=== PATIENT | female | born 1975 | race African-American/Black ===

== ENCOUNTER 2018-01-28 07:45 | Emergency (ER) | payer OTHER ==
[~2018-01-28] VITALS: Ht 152.4 cm; Wt 78.6 kg
[2018-01-28] MEDS ORDERED: FISH OIL1000 MG PO (08:01)
[2018-01-28] MEDS ORDERED: COD LIVER OI PO (08:02)
[2018-01-28 08:25] LABS: HEMATOCRIT 35.6 % (37.0-47.0); HEMOGLOBIN 11.7 g/dl (12.0-16.0); IMMATURE GRANULOCYTES 0.3 % (0.0-5.0); MEAN CORPUSCULAR HGB 27.9 pG CALC (26.0-32.0); MEAN CORPUSCULAR HGB CONC 32.9 g/L CALC (32.0-36.0); NEUT# 4.3 thou/uL (2.00-7.15); RED BLOOD COUNT 4.19 mill/uL (4.20-5.60)
[2018-01-28 08:37] LABS: INFLUENZA A NONE DETECTED (NONE DETECT); INFLUENZA B NONE DETECTED (NONE DETECT)
[2018-01-28 08:38] LABS: ANION GAP 12 (6-22 (CALC)); BUN 9 mg/dL (7-17); BUN/CREATININE RATIO 18 (12-20 (CALC)); CARBON DIOXIDE 25 mmol/l (22-30); CHLORIDE 107 mmol/l (95-108); CREATININE 0.5 mg/dL (0.5-1.0); GFR > 60 ML/MIN (>=60 (CALC)); GFR FOR AFR.AMER. > 60 ML/MIN (>=60 (CALC)); POTASSIUM 4.1 mmol/l (3.5-5.1); SODIUM 140 mmol/l (137-146)
[2018-01-28 09:13] LABS: URINE BILIRUBIN - DIPSTICK NEGATIVE (NEGATIVE); URINE BLOOD DIPSTICK LARGE (NEGATIVE); URINE COLOR YELLOW; URINE GLUCOSE - DIPSTICK NEGATIVE (NEGATIVE); URINE KETONE 15 mg/dL (NEGATIVE); URINE LEUK ESTERASE NEGATIVE (NEGATIVE); URINE NITRITE - DIPSTICK NEGATIVE (Negative); URINE PROTEIN - DIPSTICK NEGATIVE (NEG-TRACE); URINE SPECIFIC GRAVITY >=1.030; URINE UROBILINOGEN - DIPSTICK 0.2 E.U./dL (0.2)
[2018-01-28 09:14] LABS: URINE CLARITY CLEAR
[2018-01-28 09:22] LABS: URINE SQUAMOUS EPITHELIAL CELL FEW EPI/hpf (0-FEW); URINE WBC 0-2 WBC/hpf (0-5)
[2018-01-28] MEDS ORDERED: PULMICORT90 MCG/ACT PO (10:03)
[2018-01-28] MEDS ORDERED: AUGMENTIN875TAB PO (10:03)
[2018-01-28] MEDS ORDERED: ONDANSETRON4 MG PO (10:03)
[2018-01-28] MEDS ORDERED: PROAIR HFA108 MCG/AC PO (10:03)
[2018-01-28 10:29] VITALS: BP 109/67
== END 2018-01-28 10:25 | disposition home or self-care (01) ==
LOC: ED 07:45
PROVIDERS: Family Medicine
DX: J32.0 Chronic maxillary sinusitis (principal); J02.0 Streptococcal pharyngitis; R07.89 Other chest pain; J45.909 Unspecified asthma, uncomplicated; R11.2 Nausea with vomiting, unspecified; R05 Cough

== ENCOUNTER 2018-07-03 14:34 | Emergency (ER) | payer OTHER ==
[~2018-07-03] VITALS: Ht 152.4 cm; Wt 82.0 kg
[~2018-07-03 14:34] MED LIST: AUGMENTIN875TAB PO; COD LIVER OI PO; FISH OIL1000 MG PO; ONDANSETRON4 MG PO; PROAIR HFA108 MCG/AC PO; PULMICORT90 MCG/ACT PO
[2018-07-03 15:52] LABS: URINE BILIRUBIN - DIPSTICK NEGATIVE (NEGATIVE); URINE BLOOD DIPSTICK MODERATE (NEGATIVE); URINE COLOR YELLOW; URINE GLUCOSE - DIPSTICK NEGATIVE (NEGATIVE); URINE KETONE NEGATIVE (NEGATIVE); URINE NITRITE - DIPSTICK NEGATIVE (Negative); URINE PROTEIN - DIPSTICK NEGATIVE (NEG-TRACE); URINE UROBILINOGEN - DIPSTICK 0.2 E.U./dL (0.2)
[2018-07-03 15:57] LABS: URINE LEUK ESTERASE SMALL (NEGATIVE)
[2018-07-03 16:51] LABS: URINE RBC TNTC RBC/hpf (0-5)
[2018-07-03 16:52] LABS: URINE SQUAMOUS EPITHELIAL CELL FEW EPI/hpf (0-FEW)
[2018-07-03] MEDS ORDERED: KEFLEX500 M1 PO (16:53)
[2018-07-03] MEDS ORDERED: PYRIDIUM200 MG PO (16:53)
[2018-07-03 17:15] VITALS: BP 120/58
== END 2018-07-03 17:15 | disposition home or self-care (01) ==
LOC: ED 14:34
DX: N39.0 Urinary tract infection, site not specified (principal); R30.9 Painful micturition, unspecified

== ENCOUNTER 2018-07-19 21:02 | Emergency (ER) | payer OTHER ==
[~2018-07-19] VITALS: Ht 152.4 cm; Wt 83.0 kg
[~2018-07-19 21:02] MED LIST changes: +KEFLEX500 M1 PO; +PYRIDIUM200 MG PO
[2018-07-19 23:51] LABS: HEMATOCRIT 34.2 % (37.0-47.0); IMMATURE GRANULOCYTES 0.3 % (0.0-5.0); MEAN CORPUSCULAR HGB 26.4 pG CALC (26.0-32.0); MEAN CORPUSCULAR HGB CONC 32.2 g/L CALC (32.0-36.0); NEUT# 3.89 thou/uL (2.00-7.15); RED BLOOD COUNT 4.17 mill/uL (4.20-5.60); RED CELL DISTRI WIDTH 16.1 % (11.5-15.5)
[2018-07-19 23:52] LABS: URINE BILIRUBIN - DIPSTICK NEGATIVE (NEGATIVE); URINE BLOOD DIPSTICK LARGE (NEGATIVE); URINE COLOR YELLOW; URINE GLUCOSE - DIPSTICK NEGATIVE (NEGATIVE); URINE KETONE TRACE mg/dL (NEGATIVE); URINE LEUK ESTERASE NEGATIVE (NEGATIVE); URINE NITRITE - DIPSTICK NEGATIVE (Negative); URINE PH 5.5 (4.5-8.0); URINE PROTEIN - DIPSTICK NEGATIVE (NEG-TRACE); URINE SPECIFIC GRAVITY >=1.030; URINE UROBILINOGEN - DIPSTICK 0.2 E.U./dL (0.2)
[2018-07-19 23:53] LABS: HCG SERUM/URINE (NEG/POS) NEGATIVE (NEGATIVE)
[2018-07-20 00:02] LABS: ALBUMIN 4.2 g/dL (3.2-5.0); ALKALINE PHOSPHATASE 67 u/l (38-126); ANION GAP 13 (6-22 (CALC)); BILIRUBIN, TOTAL 0.2 mg/dL (0.0-1.4); BUN 11 mg/dL (7-17); BUN/CREATININE RATIO 22 (12-20 (CALC)); CARBON DIOXIDE 24 mmol/l (22-30); CHLORIDE 107 mmol/l (95-108); CREATININE 0.5 mg/dL (0.5-1.0); GFR > 60 ML/MIN (>=60 (CALC)); GFR FOR AFR.AMER. > 60 ML/MIN (>=60 (CALC)); POTASSIUM 4.1 mmol/l (3.5-5.1); SGOT/AST 22 u/l (14-36); SODIUM 139 mmol/l (137-146); TOTAL PROTEIN 7.2 g/dL (6.3-8.2)
[2018-07-20 00:06] LABS: URINE SQUAMOUS EPITHELIAL CELL MODERATE EPI/hpf (0-FEW); URINE WBC 0-2 WBC/hpf (0-5)
[2018-07-20 00:07] LABS: URINE BACTERIA MODERATE hpf
[2018-07-20 00:24] LABS: ACT PARTIAL THROMBO TIME 26.8 SECONDS (20.0-32.5)
[2018-07-20 03:07] VITALS: BP 110/70
== END 2018-07-20 03:07 | disposition home or self-care (01) ==
LOC: ED 21:02
PROVIDERS: Emergency Medicine
DX: B37.3 Candidiasis of vulva and vagina (principal); R31.9 Hematuria, unspecified; F17.210 Nicotine dependence, cigarettes, uncomplicated; R10.2 Pelvic and perineal pain; M54.5 Low back pain
CPT/HCPCS: Q9967

== ENCOUNTER 2019-04-14 | Emergency (ER) | payer SELFPAY ==
[2019-04-14 10:15] LABS: URINE BILIRUBIN - DIPSTICK NEGATIVE (NEGATIVE); URINE BLOOD DIPSTICK LARGE (NEGATIVE); URINE COLOR YELLOW; URINE GLUCOSE - DIPSTICK NEGATIVE (NEGATIVE); URINE KETONE NEGATIVE (NEGATIVE); URINE LEUK ESTERASE NEGATIVE (NEGATIVE); URINE NITRITE - DIPSTICK NEGATIVE (Negative); URINE PROTEIN - DIPSTICK NEGATIVE (NEG-TRACE); URINE UROBILINOGEN - DIPSTICK 0.2 E.U./dL (0.2)
[2019-04-14 10:34] LABS: URINE RBC 25-50 RBC/hpf (0-5); URINE SQUAMOUS EPITHELIAL CELL FEW EPI/hpf (0-FEW)
[2019-04-14] MEDS ORDERED: PYRIDIUM200 MG PO ×2 (10:39)
[2019-04-14] MEDS ORDERED: BACTRIM DS1 TAB PO (10:39)
[2019-04-14] MEDS ORDERED: DIFLUCAN150 MG PO ×2 (10:39)
== END 2019-04-14 10:52 | disposition home or self-care (01) | DRG 690 ==
DX: N39.0 Urinary tract infection, site not specified (principal); F17.210 Nicotine dependence, cigarettes, uncomplicated

== ENCOUNTER 2019-10-09 18:32 | Emergency (ER) | payer MEDICAID ==
[~2019-10-09] VITALS: Ht 144.8 cm; Wt 90.0 kg
[~2019-10-09 18:32] MED LIST changes: +BACTRIM DS1 TAB PO; +DIFLUCAN150 MG PO
[2019-10-09 19:32] LABS: HEMATOCRIT 33.3 % (37.0-47.0); HEMOGLOBIN 10.7 g/dl (12.0-16.0); IMMATURE GRANULOCYTES 0.3 % (0.0-5.0); MEAN CELL VOLUME 81.8 fL CALC (80.0-100.0); MEAN CORPUSCULAR HGB 26.3 pG CALC (26.0-32.0); MEAN CORPUSCULAR HGB CONC 32.1 g/dL CAL (32.0-36.0); NEUT# 3.39 thou/uL (2.00-7.15); RED BLOOD COUNT 4.07 mill/uL (4.20-5.60)
[2019-10-09 19:37] LABS: URINE BILIRUBIN - DIPSTICK NEGATIVE (NEGATIVE); URINE BLOOD DIPSTICK MODERATE (NEGATIVE); URINE COLOR YELLOW; URINE GLUCOSE - DIPSTICK NEGATIVE (NEGATIVE); URINE KETONE TRACE mg/dL (NEGATIVE); URINE LEUK ESTERASE NEGATIVE (NEGATIVE); URINE PROTEIN - DIPSTICK TRACE mg/dL (NEG-TRACE); URINE SPECIFIC GRAVITY 1.025
[2019-10-09 19:39] LABS: URINE NITRITE - DIPSTICK POSITIVE (Negative)
[2019-10-09 19:47] LABS: URINE SQUAMOUS EPITHELIAL CELL FEW EPI/hpf (0-FEW); URINE WBC 0-2 WBC/hpf (0-5)
[2019-10-09 19:49] LABS: ALBUMIN 4.2 g/dL (3.2-5.0); ALKALINE PHOSPHATASE 68 u/l (38-126); AMYLASE 78 u/l (30-110); ANION GAP 8 (6-22 (CALC)); BILIRUBIN, TOTAL 0.2 mg/dL (0.0-1.4); BUN 10 mg/dL (7-17); BUN/CREATININE RATIO 21 (12-20 (CALC)); CARBON DIOXIDE 23 mmol/l (22-30); CHLORIDE 108 mmol/l (95-108); CREATININE 0.5 mg/dL (0.5-1.0); GFR > 60 ML/MIN (>=60 (CALC)); GFR FOR AFR.AMER. > 60 ML/MIN (>=60 (CALC)); LIPASE 49 u/l (23-300); SGOT/AST 30 u/l (14-36); SODIUM 135 mmol/l (137-146); TOTAL PROTEIN 7.6 g/dL (6.3-8.2)
[2019-10-09 20:44] VITALS: BP 114/58
[2019-10-09] MEDS ORDERED: ULTRAM50 M1 PO (21:25)
[2019-10-09] MEDS ORDERED: KEFLEX500 M1 PO ×2 (21:25)
[2019-10-09] MEDS ORDERED: PYRIDIUM200 MG PO ×2 (21:25)
== END 2019-10-09 21:45 | disposition home or self-care (01) ==
LOC: ED 18:32
PROVIDERS: Emergency Medicine
DX: N30.90 Cystitis, unspecified without hematuria (principal); N83.202 Unspecified ovarian cyst, left side; F17.200 Nicotine dependence, unspecified, uncomplicated
CPT/HCPCS: Q9967

== ENCOUNTER 2019-11-01 11:28 | Emergency (ER) | payer MEDICAID ==
[~2019-11-01] VITALS: Ht 144.8 cm; Wt 90.0 kg
[~2019-11-01 11:28] MED LIST changes: +ULTRAM50 M1 PO
[2019-11-01 12:30] LABS: URINE BILIRUBIN - DIPSTICK NEGATIVE (NEGATIVE); URINE BLOOD DIPSTICK MODERATE (NEGATIVE); URINE COLOR YELLOW; URINE GLUCOSE - DIPSTICK NEGATIVE (NEGATIVE); URINE KETONE NEGATIVE (NEGATIVE); URINE LEUK ESTERASE NEGATIVE (NEGATIVE); URINE NITRITE - DIPSTICK NEGATIVE (Negative); URINE PH 5.5 (4.5-8.0); URINE PROTEIN - DIPSTICK NEGATIVE (NEG-TRACE); URINE SPECIFIC GRAVITY >=1.030; URINE UROBILINOGEN - DIPSTICK 0.2 E.U./dL (0.2)
[2019-11-01 12:32] LABS: HEMATOCRIT 35.4 % (37.0-47.0); IMMATURE GRANULOCYTES 0.3 % (0.0-5.0); MEAN CELL VOLUME 81.8 fL CALC (80.0-100.0); MEAN CORPUSCULAR HGB 25.4 pG CALC (26.0-32.0); MEAN CORPUSCULAR HGB CONC 31.1 g/dL CAL (32.0-36.0); NEUT# 4.85 thou/uL (2.00-7.15); RED BLOOD COUNT 4.33 mill/uL (4.20-5.60); RED CELL DISTRI WIDTH 17.8 % (11.5-15.5)
[2019-11-01 12:53] LABS: ALBUMIN 4.1 g/dL (3.2-5.0); ALKALINE PHOSPHATASE 60 u/l (38-126); ANION GAP 11 (6-22 (CALC)); BILIRUBIN, TOTAL 0.2 mg/dL (0.0-1.4); BUN 11 mg/dL (7-17); BUN/CREATININE RATIO 20 (12-20 (CALC)); CARBON DIOXIDE 21 mmol/l (22-30); CHLORIDE 107 mmol/l (95-108); CREATININE 0.6 mg/dL (0.5-1.0); GFR > 60 ML/MIN (>=60 (CALC)); GFR FOR AFR.AMER. > 60 ML/MIN (>=60 (CALC)); LIPASE 53 u/l (23-300); POTASSIUM 4.1 mmol/l (3.5-5.1); SGOT/AST 29 u/l (14-36); SODIUM 135 mmol/l (137-146); TOTAL PROTEIN 7.2 g/dL (6.3-8.2)
[2019-11-01 13:09] LABS: BETA-HCG, QUANT(RESULT NUMBER) <2 mIU/mL
[2019-11-01] MEDS ORDERED: HYOSCYAMINE0.125 M3 PO (16:57)
[2019-11-01 17:35] VITALS: BP 108/58
[2019-11-01] MEDS ORDERED: PROTONIX40 MG PO (17:44)
== END 2019-11-01 17:46 | disposition home or self-care (01) ==
LOC: ED 11:28
PROVIDERS: Family Medicine
DX: R10.12 Left upper quadrant pain (principal); R10.32 Left lower quadrant pain; N83.202 Unspecified ovarian cyst, left side; F17.200 Nicotine dependence, unspecified, uncomplicated
CPT/HCPCS: Q9967

== ENCOUNTER 2021-05-31 10:43 | Emergency (ER) | payer MEDICAID ==
[~2021-05-31] VITALS: Ht 144.8 cm; Wt 100.0 kg
[~2021-05-31 10:43] MED LIST changes: +HYOSCYAMINE0.125 M3 PO; +PROTONIX40 MG PO
[2021-05-31 11:18] LABS: URINE BILIRUBIN - DIPSTICK NEGATIVE (NEGATIVE); URINE BLOOD DIPSTICK MODERATE (NEGATIVE); URINE COLOR YELLOW; URINE GLUCOSE - DIPSTICK NEGATIVE (NEGATIVE); URINE KETONE NEGATIVE (NEGATIVE); URINE PROTEIN - DIPSTICK NEGATIVE (NEG-TRACE); URINE SPECIFIC GRAVITY >=1.030; URINE UROBILINOGEN - DIPSTICK 0.2 E.U./dL (0.2)
[2021-05-31] MEDS ORDERED: IS-ZC 50 50 MG1 TAB (11:19)
[2021-05-31] MEDS ORDERED: VITAMI16 PO (11:20)
[2021-05-31 11:22] LABS: URINE LEUK ESTERASE SMALL (NEGATIVE); URINE NITRITE - DIPSTICK NEGATIVE (Negative)
[2021-05-31 11:30] LABS: URINE BACTERIA FEW hpf; URINE SQUAMOUS EPITHELIAL CELL FEW EPI/hpf (0-FEW); URINE WBC 50-100 WBC/hpf (0-5)
[2021-05-31] MEDS ORDERED: OMNI-PAC300 MG PO (12:41)
[2021-05-31 12:51] VITALS: BP 138/83
[2021-05-31] MEDS ORDERED: DIFLUCAN150 MG PO (13:21)
== END 2021-05-31 12:56 | disposition home or self-care (01) ==
LOC: ED 10:43
PROVIDERS: Family Medicine
DX: N39.0 Urinary tract infection, site not specified (principal); B96.20 Unspecified Escherichia coli [E. coli] as the cause of diseases classified elsewhere; J45.909 Unspecified asthma, uncomplicated